=== PATIENT | male | born 1965 | race Caucasian/White ===

== ENCOUNTER 2021-04-06 08:37 | Emergency (ER) | payer BC ==
[~2021-04-06] VITALS: Ht 167.6 cm; Wt 136.1 kg
[~2021-04-06 08:37] MED LIST: CHLORPHENIRAMINE; CODACE30; DOXY100; ESOM20 PO; HYDROCODONE; Norco 5-325 Ta1 EACH PO; Omeprazole20 M1 PO; PRED10; PREVPAC PO
[2021-04-06] MEDS ORDERED: METF500 PO (08:53)
[2021-04-06] MEDS ORDERED: ATOR10 PO (08:54)
[2021-04-06] MEDS ORDERED: Lisinopril2.5 MG PO (08:54)
[2021-04-06] MEDS ORDERED: ACYC400 PO (09:29)
[2021-04-07 23:08] LABS: CHLAMYDIA TRACHOMATIS, NAA Negative (Negative)
[2021-04-09 15:09] LABS: HSV-1 DNA Negative (Negative); HSV-2 DNA Positive (Negative)
== END 2021-04-06 10:20 | disposition home or self-care (01) ==
LOC: ER 08:37
PROVIDERS: Emergency Medicine
DX: N34.2 Other urethritis (principal); Z87.891 Personal history of nicotine dependence
CPT/HCPCS: 87491; 87529; 87591; 96372; 99283-25; A9270; J0696

== ENCOUNTER 2021-10-10 20:57 | Emergency (ER) | payer OTHER, BC ==
[~2021-10-10] VITALS: Ht 170.2 cm; Wt 122.5 kg
[~2021-10-10 20:57] MED LIST changes: +ACYC400 PO; +ATOR10 PO; +Lisinopril2.5 MG PO; +METF500 PO
[2021-10-10] MEDS ORDERED: Robaxin750 MG PO (23:16)
== END 2021-10-10 23:27 | disposition home or self-care (01) ==
LOC: ER 20:57
DX: S39.012A Strain of muscle, fascia and tendon of lower back, initial encounter (principal); V53.5XXA Driver of pick-up truck or van injured in collision with car, pick-up truck or van in traffic accident, initial encounter; Z88.0 Allergy status to penicillin; Z88.6 Allergy status to analgesic agent; Z79.899 Other long term (current) drug therapy; Z79.84 Long term (current) use of oral hypoglycemic drugs
CPT/HCPCS: 72131; 99284-25; A9270

== ENCOUNTER 2025-09-24 20:31 | Emergency (ER) | payer OTHER ==
[~2025-09-24] VITALS: Ht 165.1 cm; Wt 124.7 kg
[~2025-09-24 20:31] MED LIST changes: +Robaxin750 MG PO
[2025-09-24 20:39] VITALS: BP 151/111
== END 2025-09-24 22:09 | disposition home or self-care (01) ==
LOC: ER 20:31
DX: S59.902A Unspecified injury of left elbow, initial encounter (principal); V89.2XXA Person injured in unspecified motor-vehicle accident, traffic, initial encounter; Y92.411 Interstate highway as the place of occurrence of the external cause; Z88.0 Allergy status to penicillin; Z88.8 Allergy status to other drugs, medicaments and biological substances; Z79.84 Long term (current) use of oral hypoglycemic drugs; Z79.899 Other long term (current) drug therapy; Z87.891 Personal history of nicotine dependence
CPT/HCPCS: 73080; 99284-25